=== PATIENT | female | born 1940 | race Caucasian/White ===

== ENCOUNTER 2018-09-25 06:53 | Day surgery (SDC) | payer MEDICARE, OTHER ==
[~2018-09-25 06:53] MED LIST: Lactated Ringers 1,000 ML IV SCH; Lidocaine 1%/Sod Bicarbonate in NS 8.4% 1 ML Syringe IDERM PRN; Scopolamine 1.5 MG Transdermal Patch TOP SCH; Sodium Chloride 0.9% 10 ML Syringe FLUSH PRN
[2018-09-25] MEDS ORDERED: Propofol 200 MG/20 ML SDV ONE ×2 (07:02→08:30)
--- NOTE | 2018-09-25 07:48 | PCM.PREANE ---
Preanesthetic Assessment - Anesthesia/Transfusion/Family Hx Anesthesia History: Prior Anesthesia Reaction Family History of Anesthesia Reaction: No Transfusion History: No Prior Transfusion(s) Intubation History: Unknown - Review of Systems General: No Symptoms Pulmonary: No Symptoms Cardiovascular: Palpitations, Dyspnea on Exertion Gastrointestinal: No Symptoms Other: Reports: Thyroid Problems, Anxiety - Physical Assessment NPO Status Date: 09/24/18 NPO Status Time: 11:55 Pulse: 70 O2 Sat by Pulse Oximetry: 99 Blood Pressure: 138/73 Height: 20.42 m Weight: 72.575 kg ASA Class: 3 Mental Status: Alert & Oriented x3 Airway Class: Mallampati = 2 Dentition: Reports: Airway Heights(s) ROM/Head Extension: Limited/Partial Lungs: Clear to Auscultation, Normal Respiratory Effort Cardiovascular: Regular Rate, Regular Rhythm - Allergies Allergies/Adverse Reactions: Allergies Allergy/AdvReac Type Severity Reaction Status Date / Time latex Allergy Rash Verified 09/24/18 14:20 penicillin V Allergy Rash Verified 09/24/18 14:20 - Blood Blood Available: No Product(s) Available: None - Anesthesia Plan Pre-Op Medication Ordered: None - Acknowledgements Anesthesia Type Planned: MAC Pt an Appropriate Candidate for the Planned Anesthesia: Yes Alternatives and Risks of Anesthesia Discussed w Pt/Guardian: Yes Pt/Guardian Understands and Agrees with Anesthesia Plan: Yes PreAnesthesia Questionnaire HEENT History: Reports: None Cardiovascular History: Reports: High Cholesterol Respiratory History: Reports: None Other Gastrointestinal History: Irregular bowel habits Genitourinary History: Reports: None [employer] History: Reports: Other (See Below) Other OB/BYN History: Lichen sclerosus of female genitalia Musculoskeletal History: Reports: None Neurological History: Reports: None Psychiatric History: Reports: None Endocrine/Metabolic History: Reports: None Hematologic History: Reports: None Immunologic History: Reports: None Oncologic (Cancer) History: Reports: Breast Other Dermatologic History: Lichen sclerosus of female genitalia - Past Surgical History Head Surgeries/Procedures: Reports: None HEENT Surgical History: Reports: None Cardiovascular Surgical History: Reports: None Respiratory Surgical History: Reports: None GI Surgical History: Reports: Colonoscopy, EGD Female Surgical History: Reports: Breast Biopsy, D&C, Mastectomy, Tubal Ligation Endocrine Surgical History: Reports: None Neurological Surgical History: Reports: None Musculoskeletal Surgical History: Reports: Carpal Tunnel Oncologic Surgical History: Reports: None Dermatological Surgical History: Reports: None - SUBSTANCE USE Smoking Status *Q: Never Smoker Second Hand Smoke Exposure: No Recreational Drug Use History: No - HOME MEDS Home Medications: Home Meds ALPRAZolam [Xanax] 0.25 mg PO QAM 09/24/18 [History] ALPRAZolam [Xanax] 0.5 mg PO QPM 09/24/18 [History] Bimatoprost [LUMIGAN 0.01% Ophth Soln] 1 drop EYEBOTH DAILY 09/24/18 [History] Bone Formula Supplement 3 cap PO BID 09/24/18 [History] Calcium Carbonate/Vitamin D3 [Calcium 600 + Vit D 400 Tablet] 1 tab PO DAILY 01/05 [History] Cartilage Formula 3 cap PO BID 09/24/18 [History] Clobetasol [Clobetasol Propionate 0.05%] 1 applic TOP ASDIRECTED PRN 09/24/18 [ History] Fish Oil/DHA/EPA [Fish Oil 1,200 MG] 1,200 mg PO DAILY 09/24/18 [History] Folic Acid 1 mg PO DAILY 09/24/18 [History] Levothyroxine [Synthroid] 50 mcg PO ACBREAKFAST 09/24/18 [History] Multivitamin with Minerals [Multivitamins with Minerals] 1 tab PO BID 09/24/18 [ History] Rosuvastatin [Crestor] 5 mg PO MOWEFR 09/24/18 [History] Sertraline [Zoloft] 100 mg PO DAILY 09/24/18 [History] - CURRENT (IN HOUSE) MEDS Current Meds: Current Medications Lactated Ringer's (Ringers, Lactated) 1,000 mls @ 125 mls/hr IV ASDIRECTED SHAY Stop: 09/25/18 23:00 Lidocaine/Sodium Bicarbonate (Buffered Lidocaine 1% In Ns 8.4%) 0.25 ml IDERM ONETIME PRN PRN Reason: Prior to IV Start Stop: 09/25/18 18:00 Scopolamine (Transderm-Scop) 1.5 mg TOP ONETIME SHAY Stop: 09/25/18 14:00 Sodium Chloride (Saline Flush) 10 ml FLUSH ASDIRECTED PRN PRN Reason: Keep Vein Open Stop: 09/25/18 18:00 Discontinued Medications Propofol (Diprivan 20 Ml) Confirm Administered Dose 200 mg .ROUTE .[facility] Stop: 09/25/18 07:03
[2018-09-25] MEDS ORDERED: Midazolam 1 MG/ML 2 ML SDV ONE (07:54)
[2018-09-25] MEDS ORDERED: fentaNYL 100 MCG/2 ML SDV ONE (07:54)
--- NOTE | 2018-09-25 09:19 | PCM.OPNOTE ---
- General Post-Op/Procedure Note Date of Surgery/Procedure: 09/25/18 Operative Procedure(s): EGD with bx and colonoscopy with polypectomy and bx Pre Op Diagnosis: rectal bleeding and gastric metaplasia Post-Op Diagnosis: Same Anesthesia Technique: MAC Primary Surgeon: Lex Gomez EBL in mLs: 0 Complications: None Condition: Good
--- NOTE | 2018-09-25 09:23 | PCM.POSTAN ---
POST ANESTHESIA ASSESSMENT - MENTAL STATUS Mental Status: Alert - RESPIRATORY Respiratory Status: Respiratory Rate WNL, Airway Patent, O2 Saturation Stable - CARDIOVASCULAR CV Status: Pulse Rate WNL, Blood Pressure Stable - GASTROINTESTINAL GI Status: No Symptoms
--- NOTE | 2018-09-25 09:23 | PCM48HPAN ---
Post Anesthesia Note - EVALUATION WITHIN 48HRS OF ANESTHETIC Vital Signs in Normal Range: Yes Patient Participated in Evaluation: Yes Respiratory Function Stable: Yes Airway Patent: Yes Cardiovascular Function Stable: Yes Hydration Status Stable: Yes Pain Control Satisfactory: Yes Nausea and Vomiting Control Satisfactory: Yes Mental Status Recovered: Yes Pulse Rate: 70 Resp Rate: 17 Blood Pressure: 138/73
--- NOTE | 2018-09-26 08:11 | OR ---
DATE OF OPERATION: 09/25/2018 SURGEON: Lex Gomez MD PREOPERATIVE DIAGNOSIS: Family history of gastric cancer. POSTOPERATIVE DIAGNOSIS: Family history of gastric cancer. OPERATION PERFORMED: Esophagogastroduodenoscopy with biopsy of the antrum. ANESTHESIA: Done under IV sedation. FINDINGS: Second portion of the duodenum, duodenal bulb, and pyloric channel were unremarkable. Antrum showed flat mucosa. No ulcerations or visual changes. Body, cardia, and fundus of the stomach unremarkable. Hiatus was intact. GE junction located at 35 cm. Z-line was intact. Rest of the esophagus was normal. DESCRIPTION OF PROCEDURE: The patient was taken to the endoscopy room, placed in the supine position, connected to monitoring equipment, given IV sedation. She was then placed in left lateral position. Bite block was inserted. A video Olympus gastroscope placed in the posterior oropharynx under direct vision, threaded past the cricopharyngeus, down the esophagus, into the stomach. The stomach was insufflated, and the scope passed through the pylorus to the second portion of the duodenum. This was slowly withdrawn showing a normal second portion of the duodenum, duodenal bulb, and pyloric channel. Antrum was viewed and showed some flattened mucosa and this was biopsied a number of times. J-maneuver showed fundus, cardia, and body of the stomach to be free of any acute pathology. The rest of the stomach was viewed. The scope withdrawn to the GE junction, which again was free of any pathology. Rest of the esophagus was viewed as the scope withdrawn and was normal. The patient tolerated the procedure. Specimen sent to pathology in a labeled container. IV sedation will be continued for colonoscopy. ESTIMATED BLOOD LOSS: MMODAL /[id number]
--- NOTE | 2018-09-26 08:15 | OR ---
DATE OF OPERATION: 09/25/2018 SURGEON: Lex Gomez MD PREOPERATIVE DIAGNOSIS: Rectal bleeding. POSTOPERATIVE DIAGNOSIS: Rectal bleeding. OPERATION PERFORMED: Colonoscopy to cecum with biopsy of polyp in the rectum and removal of the same polyp with cautery snare and retrieval and application of clip at the site of polypectomy. ANESTHESIA: Done under IV sedation. FINDINGS: Location of the polyp was at the distal rectum at the base of the hemorrhoidal column. ESTIMATED BLOOD LOSS: 0 mL. DESCRIPTION OF PROCEDURE: The patient was taken to the endoscopy room having been connected to monitoring equipment and given IV sedation. IV sedation continued for colonoscopy. The patient was placed in the left lateral position. Perianal area was inspected and was normal. Rectal exam showed good sphincter tone. A video Olympus colonoscope was then introduced into the rectum and threaded up without problem to the cecum, where the appendicular orifice and ileocecal valve were noted and the cannulation of the ileum was done for a short distance. Prep was excellent. [place] Cleansing Score grade A. The appendicular orifice was photographed and then the scope slowly withdrawn showing the cecum, ascending colon, transverse colon, descending colon, sigmoid colon, and rectum. Retroflexed view was done and then an area of abnormality showing some more prominent pits than usual was noted at the distal rectum, base of the anal column. This was first biopsied and then lassoed with cautery snare and removed and retrieved and these were both sent to pathology in separate labeled containers. The area was checked. There was excellent hemostasis. Because of the depth of the polypectomy site, a clip was placed on this. It was felt at the time of the polypectomy that the lesion was completely removed. The patient tolerated the procedure and sent to the recovery room in a stable condition. Specimen sent to pathology in a labeled container. The patient will be followed up in the clinic. MMODAL /[id number]
--- NOTE | 2018-09-26 08:17 | OR ---
DATE OF OPERATION: 09/25/2018 SURGEON: Lex Gomez MD ADDENDUM: PREOPERATIVE DIAGNOSIS: Metaplasia, history of gastric cancer, and rectal bleeding. MMODAL /[id number]
== END 2018-09-25 10:45 | disposition home or self-care (01) ==
LOC: JD.SDS 06:53
PROVIDERS: ATTEND Surgery
DX: K62.1 Rectal polyp (principal); K64.9 Unspecified hemorrhoids; K21.9 Gastro-esophageal reflux disease without esophagitis; I48.0 Paroxysmal atrial fibrillation; E78.00 Pure hypercholesterolemia, unspecified; Z88.0 Allergy status to penicillin; Z91.040 Latex allergy status; Z79.899 Other long term (current) drug therapy
CPT/HCPCS: 00813; 88305; 93005; A9270-GY; J2250; J2704; J3010; J7120